=== PATIENT | male | born 1975 | race Caucasian/White ===

== ENCOUNTER 2017-02-17 13:22 | Inpatient (IN) | payer OTHER ==
[~2017-02-17] VITALS: Ht 177.8 cm; Wt 63.5 kg
[2017-02-17] MEDS ORDERED: IV NORMAL SALINE 1000ML BAG 1,000 ML IV SCH (13:42)
[2017-02-17] MEDS ORDERED: 0.9 % SODIUM CHLORIDE 10 ML DISP.SYRIN. IV PRN (13:45)
[2017-02-17] MEDS ORDERED: FAMOTIDINE 20 MG/2 ML VIAL IVP ONE (13:45)
[2017-02-17 13:59] LABS: BASO # 0.1 x10^3/uL (0.0-0.2); BASO % 1 % (0-3); EOS % 1 % (0-3); HEMATOCRIT 46.2 % (39.0-53.0); HEMOGLOBIN 15.9 g/dL (13.0-17.5); LYMPH % 30 % (24-48); MEAN CORPUSCULAR HEMOGLOBIN 31 pg (25-35); MEAN CORPUSCULAR HGB CONC 35 g/dL (31-37); MEAN CORPUSCULAR VOLUME 91 fL (79-100); MONO % 10 % (0-9); NEUT % 58 % (31-73); PLATELET COUNT 296 x10^3/uL (140-400); RED BLOOD COUNT 5.09 x10^6/uL (4.30-5.70); RED CELL DISTRIBUTION WIDTH 16.3 % (11.5-14.5); WHITE BLOOD COUNT 6.5 x10^3/uL (4.0-11.0)
--- NOTE | 2017-02-17 14:02 | PHYS DOC ---
Past Medical History Past Medical History: Anxiety Past Surgical History: Cholecystectomy Additional Past Surgical Histo: L elbow Alcohol Use: Occasionally Drug Use: None Adult General Chief Complaint Chief Complaint: RECTAL BLEED HPI HPI Patient is an otherwise healthy 41-year-old male with a history of cholelithiasis requiring cholecystectomy presents with abdominal pain that began 3 or 4 days ago describes epigastric burning. Patient noticed a burning sensation in his epigastrium with no radiation to his back as lower abdomen but he did note some bright red blood per rectum began 4 days prior to arrival. It initially was just on the outside of the stool and on his toilet paper. This is x-ray changed to dark tarry weakness at this point. He said he has not had much benefit last 24-48 hours secondary to the pain is increased with food. He does drink frequently sometimes anywhere from 6-8 beers if not more than 12 beers had an episode. He denies any fevers, chills, vomiting and has had some nausea with food. Denies any direct trauma, denies any chest pain, shortness of breath or other symptoms. Patient does work and admits that he's had no recent consumption of NSAIDs or other [id number] medications. Patient is them have these symptoms before. Patient denies any lightheaded or dizziness with the symptoms. Review of Systems Review of Systems Constitutional: Denies fever or chills [] Eyes: Denies change in visual acuity, redness, or eye pain [] HENT: Denies nasal congestion or sore throat [] Respiratory: Denies cough or shortness of breath [] Cardiovascular: No additional information not addressed in HPI [] GI: She complains of abdominal pain with nausea but no vomiting he has blood in his stools without constipation or diarrhea : Denies dysuria or hematuria [] Musculoskeletal: Denies back pain or joint pain [] Integument: Denies rash or skin lesions [] Neurologic: Denies headache, focal weakness or sensory changes [] Endocrine: Denies polyuria or polydipsia [] Current Medications Current Medications Current Medications Medications (Trade) Dose Ordered Sig/Tong Start Time Stop Time Status Last Admin Dose Admin Famotidine (Pepcid) 20 mg 1X ONCE 02/17/17 13:45 02/17/17 13:53 DC 02/17/17 13:59 20 MG Info (Do NOT chart on this entry -- for MONITORING) 1 each PRN DAILY PRN 02/17/17 14:30 02/19/17 14:29 Iohexol (Omnipaque 300 Mg/ml) 75 ml STK-MED ONCE 02/17/17 14:22 02/17/17 14:23 DC Sodium Chloride (Normal Saline Flush) 10 ml QSHIFT PRN 02/17/17 13:45 Allergies Allergies Allergies Coded Allergies Type Severity Reaction Last Updated Verified No Known Drug Allergies 07/05/14 No Physical Exam Physical Exam Other vital signs recorded on the chart patient noted to be hypertensive Constitutional: Well developed, well nourished, no acute distress, non-toxic appearance. Patient is somewhat pale. HENT: Normocephalic, atraumatic, bilateral external ears normal, oropharynx moist, no oral exudates, nose normal. [] Eyes: PERRLA, EOMI, conjunctiva normal, no discharge. [] Neck: Normal range of motion, no tenderness, supple, no stridor. [] Cardiovascular:Heart rate regular rhythm, no murmur [] Lungs & Thorax: Bilateral breath sounds clear to auscultation [] Abdomen: Bowel sounds normal, soft, no tenderness, no masses, no pulsatile masses. On rectal exam patient did not demonstrate any signs of obvious anal fissure, active bleeding, or marked hemorrhoids. Patient no tenderness on rectal exam. He was obviously not guaiac-positive and had no melanotic stool.[] Skin: Warm, dry, no erythema, no rash. [] Back: No tenderness, no CVA tenderness. [] Extremities: No tenderness, no cyanosis, no clubbing, ROM intact, no edema. [] Neurologic: Alert and oriented X 3, normal motor function, normal sensory function, no focal deficits noted. [] Psychologic: Affect normal, judgement normal, mood normal. [] Current Patient Data Vital Signs Vital Signs Date Time Temp Pulse Resp B/P (MAP) Pulse Ox O2 Delivery O2 Flow Rate FiO2 02/17/17 13:29 97.9 89 16 164/109 (127) 100 Room Air 97.9 Lab Values Laboratory Tests Test 02/17/17 13:35 02/17/17 14:00 02/17/17 14:40 White Blood Count 6.5 x10^3/uL (4.0-11.0) Red Blood Count 5.09 x10^6/uL (4.30-5.70) Hemoglobin 15.9 g/dL (13.0-17.5) Hematocrit 46.2 % (39.0-53.0) Mean Corpuscular Volume 91 fL (79-100) Mean Corpuscular Hemoglobin 31 pg (25-35) Mean Corpuscular Hemoglobin Concent 35 g/dL (31-37) Red Cell Distribution Width 16.3 % (11.5-14.5) H Platelet Count 296 x10^3/uL (140-400) Neutrophils (%) (Auto) 58 % (31-73) Lymphocytes (%) (Auto) 30 % (24-48) Monocytes (%) (Auto) 10 % (0-9) H Eosinophils (%) (Auto) 1 % (0-3) Basophils (%) (Auto) 1 % (0-3) Neutrophils # (Auto) 3.8 x10^3uL (1.8-7.7) Lymphocytes # (Auto) 2.0 x10^3/uL (1.0-4.8) Monocytes # (Auto) 0.7 x10^3/uL (0.0-1.1) Eosinophils # (Auto) 0.1 x10^3/uL (0.0-0.7) Basophils # (Auto) 0.1 x10^3/uL (0.0-0.2) Sodium Level 133 mmol/L (136-145) L Potassium Level 4.0 mmol/L (3.5-5.1) Chloride Level 99 mmol/L (98-107) Carbon Dioxide Level 25 mmol/L (21-32) Anion Gap 9 (6-14) Blood Urea Nitrogen 3 mg/dL (8-26) L Creatinine 0.9 mg/dL (0.7-1.3) Estimated GFR (Cockcroft-Gault) 93.0 Glucose Level 102 mg/dL (70-99) H Calcium Level 9.3 mg/dL (8.5-10.1) Magnesium Level 1.8 mg/dL (1.8-2.4) Total Bilirubin 0.6 mg/dL (0.2-1.0) Direct Bilirubin 0.1 mg/dL (0.0-0.2) Aspartate Amino Transferase (AST) 54 U/L (15-37) H Alanine Aminotransferase (ALT) 52 U/L (16-63) Alkaline Phosphatase 95 U/L (46-116) Troponin I Quantitative < 0.017 ng/mL (0.000-0.055) Total Protein 8.7 g/dL (6.4-8.2) H Albumin 3.8 g/dL (3.4-5.0) Lipase 231 U/L (73-393) Thyroid Stimulating Hormone (TSH) 0.622 uIU/mL (0.358-3.74) Stool Occult Blood Positive (NEG) Urine Collection Type Unknown Urine Color Colorless Urine Clarity Clear Urine pH 6.5 Urine Specific [place] <=1.005 Urine Protein Negative mg/dL (NEG-TRACE) Urine Glucose (UA) Negative mg/dL (NEG) Urine Ketones (Stick) Negative mg/dL (NEG) Urine Blood Negative (NEG) Urine Nitrite Negative (NEG) Urine Bilirubin Negative (NEG) Urine Urobilinogen Dipstick 0.2 mg/dL (0.2 mg/dL) Urine Leukocyte Esterase Negative (NEG) Urine RBC 0 /HPF (0-2) Urine WBC 0 /HPF (0-4) Urine Bacteria 0 /HPF (0-FEW) Laboratory Tests 02/17/17 13:35 Laboratory Tests 02/17/17 13:35 EKG EKG []Patient EKG timed at 1340 2 PM demonstrates a heart rate of 80 which is normal sinus rhythm read by me CO interval 168, QRS of 76 patient's QTc is 374 which is normal. Patient is T-wave (oh elevation is consistent with early repolarization. There is no T wave inversion and no reciprocal changes. Radiology/Procedures Radiology/Procedures [] [facility] [address] [place] [address] IMAGING REPORT Signed PATIENT: NORI VARGAS ACCOUNT: [id number] : 1975 LOCATION: ER AGE: 41 SEX: M EXAM STATUS: REG ER ORD. PHYSICIAN: GRACE BERRIOS MD REASON: epigastric ab pain PROCEDURE: CT ABD PELV W/ IV CONTRST ONLY Indication rectal bleeding for 3 days. Axial images of the abdomen and pelvis were obtained. No oral contrast was administered. Approximately 75 cc of Omnipaque 300 was administered intravenously. No prior imaging of the abdomen or pelvis is available. The lung bases are clear. The liver and spleen appear unremarkable. Clips are noted in the gallbladder fossa. The pancreas appears unremarkable. No adrenal masses are seen. There is a subcentimeter mass in the right kidney most compatible with a cyst. An acute or significant finding in the abdomen is not seen. In the pelvis no acute or significant finding is seen. The urinary bladder is mildly distended. IMPRESSION: No acute finding seen in the abdomen or pelvis. Mildly distended urinary bladder DICTATED and SIGNED BY: AMBER RAMON MD DATE: 02/17/17 2548 CC: GRACE BERRIOS MD; UNKNOWN PCP NAME ~ Course & Med Decision Making Course & Med Decision Making Pertinent Labs and Imaging studies reviewed. (See chart for details) On arrival patient is admitted alcohol user who complains of midepigastric abdominal pain with no gallbladder my concern initially upon arrival was peptic ulcer disease or perhaps alcoholic gastritis. Patient's rectal exam was really unremarkable with no evidence of rectal fissures, rectal hemorrhoids or rectal foreign body or abscess that be causing his symptoms. Patient is no evidence of internal hemorrhoids that is guaiac stool was positive.. He'll be given fluids anti-medics and pain medications as we wait for his blood work to return. Patient also a CT with IV contrast to see if there is any obvious signs of small bowel obstruction, perforation or other pending surgical catastrophes in his abdomen. Times now 2:40 PM patient is feeling somewhat better with fluids and medications. Low IV Protonix was not available due to shortages patient was given IV famotidine with marked improvement. Although there is no obvious blood in the stool from rectal exam patient was guaiac-positive. Patient's CBC came back with an agent that was normal at 15 and 44. Patient's platelet Was normal. Patient had an negative troponin, negative CMP, and a negative CT of the abdomen and pelvis. Shipyard Painter Helper note: Medicine Shipyard Painter Helper called at of the service 3:30 PM Consult called back at 4:45 PM Discussed the case I presented and they agreed with admission. Time of acceptance 4:45 PM Patient is in agreement with admission and is wanting to see a GI physician to help evaluate his source of GI bleed. [] Dragon Disclaimer Dragon Disclaimer This electronic medical record was generated, in whole or in part, using a voice recognition dictation system. Departure Departure Impression: Primary Impression: GI bleed Additional Impressions: Gastritis Abdominal pain Disposition: ADMITTED INPATIENT Admitting Physician: Other Condition: IMPROVED Referrals: NO PCP (PCP) Problem Qualifiers GRACE BERRIOS MD Feb 17, 2017 14:02
[2017-02-17 14:11] LABS: CALCIUM 9.3 mg/dL (8.5-10.1); CREATININE 0.9 mg/dL (0.7-1.3)
[2017-02-17 14:14] LABS: NEG OBC FOB NEG; POS OBC FOB POS
[2017-02-17 14:15] LABS: ALBUMIN 3.8 g/dL (3.4-5.0); DIRECT BILIRUBIN 0.1 mg/dL (0.0-0.2); MAGNESIUM 1.8 mg/dL (1.8-2.4); TOTAL BILIRUBIN 0.6 mg/dL (0.2-1.0); TOTAL PROTEIN 8.7 g/dL (6.4-8.2)
[2017-02-17] MEDS ORDERED: IOHEXOL 300 MG/ML 75 ML VIAL ONE (14:22)
[2017-02-17] MEDS ORDERED: IOHEXOL 300 MG/ML 75 ML VIAL IV ONE (14:30)
[2017-02-17] MEDS ORDERED: CONTRAST GIVEN MC PRN (14:30)
[2017-02-17 14:52] LABS: BILIRUBIN,URINE NEGATIVE (NEG); GLUCOSE,URINE NEGATIVE (NEG); NITRITE,URINE NEGATIVE (NEG); PH,URINE 6.5; PROTEIN,URINE NEGATIVE (NEG-TRACE); UROBILINOGEN,URINE 0.2 mg/dL (0.2 mg/dL)
[2017-02-17 15:06] LABS: BACTERIA,URINE 0 /HPF (0-FEW); RBC,URINE 0 /HPF (0-2); WBC,URINE 0 /HPF (0-4)
--- NOTE | 2017-02-17 15:16 | RAD ---
Indication rectal bleeding for 3 days. Axial images of the abdomen and pelvis were obtained. No oral contrast was administered. Approximately 75 cc of Omnipaque 300 was administered intravenously. No prior imaging of the abdomen or pelvis is available. The lung bases are clear. The liver and spleen appear unremarkable. Clips are noted in the gallbladder fossa. The pancreas appears unremarkable. No adrenal masses are seen. There is a subcentimeter mass in the right kidney most compatible with a cyst. An acute or significant finding in the abdomen is not seen. In the pelvis no acute or significant finding is seen. The urinary bladder is mildly distended. IMPRESSION: No acute finding seen in the abdomen or pelvis. Mildly distended urinary bladder
[2017-02-17] MEDS ORDERED: ONDANSETRON PF 4 MG/2 ML VIAL. IV PRN (15:45)
[2017-02-17] MEDS ORDERED: fentaNYL PF VIAL 100 MCG/2 ML VIAL IV PRN (15:45)
--- NOTE | 2017-02-17 15:53 | EKG ---
[facility] [address] [place] [address] Test Date: 2017-02-17 Test Time: 13:42:45 Pat Name: NORI VARGAS Department: Room: Gender: M Delivery Truck Driver Heavy: : 1975 Requested By: GRACE BERRIOS Order Number: [id number] Reading MD: Keyon Elizabeth Measurements Intervals [place] Rate: 80 P: 57 RI: 168 QRS: 6 QRSD: 76 T: 62 QT: 322 QTc: 374 Interpretive Statements SINUS RHYTHM Electronically Signed On 02-22-2017 10:24:12 CDT by Keyon Elizabeth
[2017-02-17] MEDS ORDERED: SERT25TA4 PO (17:35)
[2017-02-17] MEDS: IV NORMAL SALINE 1000ML BAG 1,000 ML IV SCH ×2 (17:42→20:48)
[2017-02-17 19:26] VITALS: BP 135/89
--- NOTE | 2017-02-17 19:54 | HP ---
ADMIT DATE: 02/17/2017 CHIEF COMPLAINT: Rectal bleeding. HISTORY OF PRESENT ILLNESS: The patient is a 41-year-old gentleman who presented to the Emergency Room with a 3-day history of bright red blood per rectum. He relates that, in a timeframe, he started having diarrhea. Had bleeding essentially right after ___ and with each bowel movement. Although he did have multiple bowel movements per day, he denies any abdominal pain. He does affirm having nausea, denies any vomiting; however, does have some heartburn off and on. He denies fevers, but does note chills over the past 3 days. P.o. intake has been rather limited. Has not had anything for 24 hours now. Denies any sick contacts at home or at work. Amount of bleeding is scant. He never has bleeding by itself without stool. Never had symptoms like this before. PAST MEDICAL HISTORY: Anxiety. PAST SURGICAL HISTORY: He is status post cholecystectomy. FAMILY HISTORY: No GI issues known. Positive for diabetes and heart disease. SOCIAL HISTORY: Lives with his and 2 teenage children. Smokes about 5 or 6 cigarettes a day. Drinks about 6 or 8 beers on weekends. Denies any heavy alcohol use, otherwise. ALLERGIES: No known drug allergies. HOME MEDICATIONS: Sertraline. REVIEW OF SYSTEMS: Positive as per HPI. The rest of organ system review is negative. PHYSICAL EXAMINATION: VITAL SIGNS: From today show a blood pressure of 139/95, heart rate of 89, respiratory rate at 18. He is afebrile. GENERAL: This is a 41-year-old gentleman, well nourished, alert and oriented, in no acute distress. HEENT: Shows no scleral icterus. NECK: Supple. LUNGS: Clear to auscultation bilaterally. HEART: Has regular rate and rhythm. ABDOMEN: Has positive bowel sounds, soft, without any tenderness to palpation in the entire abdomen. EXTREMITIES: Show no edema, no clubbing, no cyanosis. SKIN: Warm, soft and dry without any rash. LABORATORY DATA: CBC with a WBC of 6.5, hemoglobin 15.9, platelets of 296. Chemistries: BUN and creatinine of 3 and 0.9, sodium at 133, potassium 4.0. LFTs with minimally elevated AST at 54. Initial CK is negative. Troponin 0.6. UA with less than 0.105 specific gravity, which is unusual and occult stool is positive. IMAGING: CT of the abdomen and pelvis without acute findings in the abdomen and pelvis, say for mildly distended urinary bladder. ASSESSMENT AND PLAN: The patient is a 41-year-old gentleman presenting with painless rectal bleeding. Suspect this may be internal hemorrhoids, cannot rule out diverticulitis, although no pain is noted on physical exam and CT is negative. We will obtain GI consult. We will keep him n.p.o. for now. He has antiemetics available. PPI will be continued. CONSTANZA GOULD MD DR: UR/nts JOB#: [id number] / [id number] JOYCE
[2017-02-17] MEDS: SERTRALINE 25 MG TABLET. PO SCH (20:48)
[2017-02-17] MEDS: PANTOPRAZOLE 40 MG TABLET.DR. PO SCH (20:48)
[2017-02-17 22:56] VITALS: BP 119/89
[2017-02-18 02:56] VITALS: BP 120/84
--- NOTE | 2017-02-18 05:29 | ACF ---
Admission Forms Criteria GASTROINTESTINAL BLEEDING Clinical Indications for Inpatient Care (Place 'X' for any and all applicable criteria): Ongoing inpatient care may be indicated for gastrointestinal bleeding with ANY ONE of the following (4)(20)(21)(22)(23)(24): [X]I. Active bleeding (eg, fresh voluminous blood in emesis or nasogastric aspirate, or per rectum) [ ]II. Hemodynamic instability [ ]III. Anticoagulation therapy or coagulopathy ((eg, advanced liver disease, irreversible anticoagulation) [ ]IV. Ischemic colitis (22) [ ]V. Endoscopy showing arterial bleeding, adherent clot, nonbleeding visible vessel, varices, flat red spots, ulcer size greater than 2 cm, or portal hypertensive gastropathy [ ]. High-risk low platelet count [ ]VII. Anemia requiring inpatient care as indicated by ANY ONE of the following a)[ ] Cognitive impairment b)[ ] Syncope c)[ ] Heart failure d)[ ] Chest pain e)[ ] Dyspnea f)[ ] Other findings suggesting inadequate perfusion (eg, peripheral or myocardial ischemia, end organ dysfunction) [ ]VIII. High-risk low platelet count [ ]IX. Suspected variceal cause of bleeding as indicated by ANY ONE of the following(27)(28): a)[ ] Known varices b)[ ] Hepatomegaly or splenomegaly c)[ ] Ascites d)[ ] Jaundice or scleral icterus e)[ ] History of liver disease (eg, cirrhosis) f)[ ] Physical findings of portal hypertension (eg, caput medusa) g)[ ] Comorbid disorder indicating risk for portal vein thrombosis (eg , abdominal surgery, sepsis, shock, exchange transfusion, prior umbilical vein catheterization) Extended stay may be needed until ALL of the following are present(20)(38)(47): [ ]a) Hemodynamic stability [ ]b) No evidence of active bleeding (eg, stable Hematocrit) [ ]c) Platelet count, prothrombin time, and partial thromboplastin time acceptable for next level of care [ ]d) Surgical or other acute intervention not needed [ ]e) Oral hydration and diet tolerated The original [employer] content created by [employer] has been revised. The portions of the content which have been revised are identified through the use of italic text or in bold, and [employer] has neither reviewed nor approved the modified material. All other unmodified content is copyright [facility]. Please see references footnoted in the original [facility] edition 2016 Admission Criteria Met?: Yes PAIGE ALRA Feb 18, 2017 05:29
[2017-02-18 07:00] VITALS: BP 121/84
[2017-02-18] MEDS: PANTOPRAZOLE 40 MG TABLET.DR. PO SCH ×2 (08:40→17:31)
[2017-02-18] MEDS: IV NORMAL SALINE 1000ML BAG 1,000 ML IV SCH (08:41)
[2017-02-18 08:46] LABS: BASO % 1 % (0-3); EOS % 1 % (0-3); HEMATOCRIT 40.6 % (39.0-53.0); HEMOGLOBIN 14.4 g/dL (13.0-17.5); LYMPH # 1.1 x10^3/uL (1.0-4.8); LYMPH % 21 % (24-48); MEAN CORPUSCULAR HEMOGLOBIN 32 pg (25-35); MEAN CORPUSCULAR HGB CONC 36 g/dL (31-37); MEAN CORPUSCULAR VOLUME 90 fL (79-100); MONO % 9 % (0-9); NEUT % 68 % (31-73); PLATELET COUNT 207 x10^3/uL (140-400); RED BLOOD COUNT 4.52 x10^6/uL (4.30-5.70); RED CELL DISTRIBUTION WIDTH 16.3 % (11.5-14.5); WHITE BLOOD COUNT 5.2 x10^3/uL (4.0-11.0)
[2017-02-18 09:02] LABS: % SAT IRON 67 % (15-34); IRON,SERUM 161 ug/dL (65-175)
--- NOTE | 2017-02-18 09:50 | PDOC2 ---
GI CONSULT Reason For Consult: New GI Bleed HPI: HPI: 41 y/o male admitted through the ER. Reports diarrhea x 3 days, estimates 6-7 brown-yellow watery stools w/ "stripes" of red blood + blood on toilet tissue ( has occurred once since admission). Denies precipitating events including consumption of questionable food, new medication use, or sick contacts; did travel to [place] ~6 weeks ago. Also had some significant lower back pain ~3 weeks ago that he thought might have been a kidney infection; this resolved. Has not had issues w/ bleeding previously; however, had a colonoscopy @ [facility] for "digestive problems" a few years ago, doesn't recall results. Had some epigastric pain yesterday which has resolved. Some nausea w/o vomiting. No weight loss or change in appetite. Has had chills. No reflux/heartburn. Occasional NSAID use for HAs. No previous EGD. S/p cholecystectomy "for seeds. " No liver or pancreas history. Drinks 1-2 beers sometimes on the weekdays plus 6-8 beers on the weekends. Labs: Hgb 15.9 (now 14.4), BUN 3, Na 133, LFTs WNL except AST 55, fecal occult blood +. CT A/P unrevealing. Kept NPO w/ ice chips, on PPI. Just received Fentanyl for MARQUES, feels dizzy now. PMH: PMH: cholecystectomy FH: Family History: No pertinent hx (denies GI cancers, IBD, liver/pancreas disease ) Social History: Smoke: <1 pack per day ALCOHOL: other (sometimes 1-2 beers on weeknights, 6-8 beers on weekends) Drugs: None ROS: GEN: +chills HEENT: Denies blurred vision, sore throat CV: Denies chest pain RESP: Denies shortness of air, cough GI: Per HPI : Denies hematuria, dysuria ENDO: Denies weight changes NEURO: +MARQUES/dizzy MSK: +back pain - resolved SKIN: Denies jaundice, pruritus Vitals: Vitals: Vital Signs Date Time Temp Pulse Resp B/P (MAP) Pulse Ox O2 Delivery O2 Flow Rate FiO2 02/18/17 08:41 Room Air 02/18/17 07:00 98.2 74 20 121/84 (96) 98 98.2 Labs: Labs: Laboratory Tests Test 02/17/17 13:35 02/17/17 14:00 02/17/17 14:40 02/17/17 19:30 White Blood Count 6.5 x10^3/uL (4.0-11.0) Red Blood Count 5.09 x10^6/uL (4.30-5.70) Hemoglobin 15.9 g/dL (13.0-17.5) Hematocrit 46.2 % (39.0-53.0) Mean Corpuscular Volume 91 fL (79-100) Mean Corpuscular Hemoglobin 31 pg (25-35) Mean Corpuscular Hemoglobin Concent 35 g/dL (31-37) Red Cell Distribution Width 16.3 % (11.5-14.5) Platelet Count 296 x10^3/uL (140-400) Neutrophils (%) (Auto) 58 % (31-73) Lymphocytes (%) (Auto) 30 % (24-48) Monocytes (%) (Auto) 10 % (0-9) Eosinophils (%) (Auto) 1 % (0-3) Basophils (%) (Auto) 1 % (0-3) Neutrophils # (Auto) 3.8 x10^3uL (1.8-7.7) Lymphocytes # (Auto) 2.0 x10^3/uL (1.0-4.8) Monocytes # (Auto) 0.7 x10^3/uL (0.0-1.1) Eosinophils # (Auto) 0.1 x10^3/uL (0.0-0.7) Basophils # (Auto) 0.1 x10^3/uL (0.0-0.2) Sodium Level 133 mmol/L (136-145) Potassium Level 4.0 mmol/L (3.5-5.1) Chloride Level 99 mmol/L (98-107) Carbon Dioxide Level 25 mmol/L (21-32) Anion Gap 9 (6-14) Blood Urea Nitrogen 3 mg/dL (8-26) Creatinine 0.9 mg/dL (0.7-1.3) Estimated GFR (Cockcroft-Gault) 93.0 Glucose Level 102 mg/dL (70-99) Calcium Level 9.3 mg/dL (8.5-10.1) Magnesium Level 1.8 mg/dL (1.8-2.4) Total Bilirubin 0.6 mg/dL (0.2-1.0) Direct Bilirubin 0.1 mg/dL (0.0-0.2) Aspartate Amino Transf (AST/SGOT) 54 U/L (15-37) Alanine Aminotransferase (ALT/SGPT) 52 U/L (16-63) Alkaline Phosphatase 95 U/L (46-116) Troponin I Quantitative < 0.017 ng/mL (0.000-0.055) < 0.017 ng/mL (0.000-0.055) Total Protein 8.7 g/dL (6.4-8.2) Albumin 3.8 g/dL (3.4-5.0) Lipase 231 U/L (73-393) Thyroid Stimulating Hormone (TSH) 0.622 uIU/mL (0.358-3.74) Stool Occult Blood Positive (NEG) Urine Collection Type Unknown Urine Color Colorless Urine Clarity Clear Urine pH 6.5 Urine Specific [place] <=1.005 Urine Protein Negative mg/dL (NEG-TRACE) Urine Glucose (UA) Negative mg/dL (NEG) Urine Ketones (Stick) Negative mg/dL (NEG) Urine Blood Negative (NEG) Urine Nitrite Negative (NEG) Urine Bilirubin Negative (NEG) Urine Urobilinogen Dipstick 0.2 mg/dL (0.2 mg/dL) Urine Leukocyte Esterase Negative (NEG) Urine RBC 0 /HPF (0-2) Urine WBC 0 /HPF (0-4) Urine Bacteria 0 /HPF (0-FEW) Test 02/18/17 08:31 White Blood Count 5.2 x10^3/uL (4.0-11.0) Red Blood Count 4.52 x10^6/uL (4.30-5.70) Hemoglobin 14.4 g/dL (13.0-17.5) Hematocrit 40.6 % (39.0-53.0) Mean Corpuscular Volume 90 fL (79-100) Mean Corpuscular Hemoglobin 32 pg (25-35) Mean Corpuscular Hemoglobin Concent 36 g/dL (31-37) Red Cell Distribution Width 16.3 % (11.5-14.5) Platelet Count 207 x10^3/uL (140-400) Neutrophils (%) (Auto) 68 % (31-73) Lymphocytes (%) (Auto) 21 % (24-48) Monocytes (%) (Auto) 9 % (0-9) Eosinophils (%) (Auto) 1 % (0-3) Basophils (%) (Auto) 1 % (0-3) Neutrophils # (Auto) 3.5 x10^3uL (1.8-7.7) Lymphocytes # (Auto) 1.1 x10^3/uL (1.0-4.8) Monocytes # (Auto) 0.5 x10^3/uL (0.0-1.1) Eosinophils # (Auto) 0.1 x10^3/uL (0.0-0.7) Basophils # (Auto) 0.0 x10^3/uL (0.0-0.2) Allergies: Coded Allergies: No Known Drug Allergies (Unverified , 07/05/14) Medications: Current Medications Medications (Trade) Dose Ordered Sig/Tong Route PRN Reason Start Time Stop Time Status Last Admin Dose Admin Sodium Chloride 1,000 ml @ 1,000 mls/hr Q1H IV 02/17/17 13:42 02/17/17 14:41 DC 02/17/17 14:00 Famotidine (Pepcid) 20 mg 1X ONCE IVP 02/17/17 13:45 02/17/17 13:53 DC 02/17/17 13:59 Iohexol (Omnipaque 300 Mg/ml) 75 ml 1X ONCE IV 02/17/17 14:30 02/17/17 14:31 DC 02/17/17 14:59 Ondansetron HCl (Zofran) 4 mg PRN Q8HRS PRN IV NAUSEA/VOMITING 02/17/17 15:45 02/18/17 15:44 02/17/17 17:42 Fentanyl Citrate (Fentanyl 2ml Vial) 50 mcg PRN Q1HR PRN IV PAIN 02/17/17 15:45 02/18/17 15:44 02/18/17 08:41 Sodium Chloride 1,000 ml @ 125 mls/hr Q8H IV 02/17/17 15:41 02/18/17 15:40 02/18/17 08:41 Pantoprazole Sodium (Protonix) 40 mg BIDAC PO 02/17/17 18:00 02/18/17 08:40 Sertraline HCl (Zoloft) 25 mg QHS PO 02/17/17 21:00 02/17/17 20:48 Imaging: Imaging: CT A/P 02/17/17 w/ IV contrast The lung bases are clear. The liver and spleen appear unremarkable. Clips are noted in the gallbladder fossa. The pancreas appears unremarkable. No adrenal masses are seen. There is a subcentimeter mass in the right kidney most compatible with a cyst. An acute or significant finding in the abdomen is not seen. In the pelvis no acute or significant finding is seen. The urinary bladder is mildly distended. IMPRESSION: No acute finding seen in the abdomen or pelvis. Mildly distended urinary bladder. PE: GEN: NAD HEENT: Atraumatic, PERRL LUNGS: CTAB HEART: RRR ABD: NABS, S/ND/NT EXTREMITY: No edema SKIN: No rashes, no jaundice NEURO/PSYCH: A & O 3 A/P: A/P: Diarrhea, rectal bleeding -onset 3 days ago, 6-7 watery stools daily w/ streaks of red blood -Hgb and BUN WNL, fecal occult positive -travel to [place] 6 weeks ago, has had chills Nausea Abd pain - resolved Alcohol use -Na 133, AST 55, liver unremarkable on CT Headache CRC screen -previous colon[facility] @ [facility], unsure about results -- Check tox screen, iron profile, Cortisol levels, and fecal WBCs. SCOTT CASILLAS Feb 18, 2017 09:50
[2017-02-18 11:00] VITALS: BP 124/88
--- NOTE | 2017-02-18 12:19 | PDOC ---
PROGRESS NOTES Chief Complaint Chief Complaint GI bleed Epigastric abd pain History of Present Illness History of Present Illness Pt was laying in bed and feels ok but was very hungry. Discussed with GI and we were keeping him NPO until GI had a chance to do their exam. Relayed this to pt and he understands Vitals Vitals Vital Signs Date Time Temp Pulse Resp B/P (MAP) Pulse Ox O2 Delivery O2 Flow Rate FiO2 02/18/17 11:00 98.2 80 20 124/88 (100) 99 Room Air 98.2 Physical Exam General: Alert, Oriented X3, Cooperative, No acute distress Heart: Regular rate, No murmurs Lungs: Clear, Other (no wheezing, no crackles) Abdomen: Soft, No tenderness, Other Extremities: No clubbing, No cyanosis Skin: No rashes, No significant lesion Labs LABS Laboratory Tests Test 02/17/17 13:35 02/17/17 14:00 02/17/17 14:40 02/17/17 19:30 White Blood Count 6.5 x10^3/uL (4.0-11.0) Red Blood Count 5.09 x10^6/uL (4.30-5.70) Hemoglobin 15.9 g/dL (13.0-17.5) Hematocrit 46.2 % (39.0-53.0) Mean Corpuscular Volume 91 fL (79-100) Mean Corpuscular Hemoglobin 31 pg (25-35) Mean Corpuscular Hemoglobin Concent 35 g/dL (31-37) Red Cell Distribution Width 16.3 % (11.5-14.5) Platelet Count 296 x10^3/uL (140-400) Neutrophils (%) (Auto) 58 % (31-73) Lymphocytes (%) (Auto) 30 % (24-48) Monocytes (%) (Auto) 10 % (0-9) Eosinophils (%) (Auto) 1 % (0-3) Basophils (%) (Auto) 1 % (0-3) Neutrophils # (Auto) 3.8 x10^3uL (1.8-7.7) Lymphocytes # (Auto) 2.0 x10^3/uL (1.0-4.8) Monocytes # (Auto) 0.7 x10^3/uL (0.0-1.1) Eosinophils # (Auto) 0.1 x10^3/uL (0.0-0.7) Basophils # (Auto) 0.1 x10^3/uL (0.0-0.2) Sodium Level 133 mmol/L (136-145) Potassium Level 4.0 mmol/L (3.5-5.1) Chloride Level 99 mmol/L (98-107) Carbon Dioxide Level 25 mmol/L (21-32) Anion Gap 9 (6-14) Blood Urea Nitrogen 3 mg/dL (8-26) Creatinine 0.9 mg/dL (0.7-1.3) Estimated GFR (Cockcroft-Gault) 93.0 Glucose Level 102 mg/dL (70-99) Calcium Level 9.3 mg/dL (8.5-10.1) Magnesium Level 1.8 mg/dL (1.8-2.4) Total Bilirubin 0.6 mg/dL (0.2-1.0) Direct Bilirubin 0.1 mg/dL (0.0-0.2) Aspartate Amino Transf (AST/SGOT) 54 U/L (15-37) Alanine Aminotransferase (ALT/SGPT) 52 U/L (16-63) Alkaline Phosphatase 95 U/L (46-116) Troponin I Quantitative < 0.017 ng/mL (0.000-0.055) < 0.017 ng/mL (0.000-0.055) Total Protein 8.7 g/dL (6.4-8.2) Albumin 3.8 g/dL (3.4-5.0) Lipase 231 U/L (73-393) Thyroid Stimulating Hormone (TSH) 0.622 uIU/mL (0.358-3.74) Stool Occult Blood Positive (NEG) Urine Collection Type Unknown Urine Color Colorless Urine Clarity Clear Urine pH 6.5 Urine Specific [place] <=1.005 Urine Protein Negative mg/dL (NEG-TRACE) Urine Glucose (UA) Negative mg/dL (NEG) Urine Ketones (Stick) Negative mg/dL (NEG) Urine Blood Negative (NEG) Urine Nitrite Negative (NEG) Urine Bilirubin Negative (NEG) Urine Urobilinogen Dipstick 0.2 mg/dL (0.2 mg/dL) Urine Leukocyte Esterase Negative (NEG) Urine RBC 0 /HPF (0-2) Urine WBC 0 /HPF (0-4) Urine Bacteria 0 /HPF (0-FEW) Test 02/18/17 08:31 White Blood Count 5.2 x10^3/uL (4.0-11.0) Red Blood Count 4.52 x10^6/uL (4.30-5.70) Hemoglobin 14.4 g/dL (13.0-17.5) Hematocrit 40.6 % (39.0-53.0) Mean Corpuscular Volume 90 fL (79-100) Mean Corpuscular Hemoglobin 32 pg (25-35) Mean Corpuscular Hemoglobin Concent 36 g/dL (31-37) Red Cell Distribution Width 16.3 % (11.5-14.5) Platelet Count 207 x10^3/uL (140-400) Neutrophils (%) (Auto) 68 % (31-73) Lymphocytes (%) (Auto) 21 % (24-48) Monocytes (%) (Auto) 9 % (0-9) Eosinophils (%) (Auto) 1 % (0-3) Basophils (%) (Auto) 1 % (0-3) Neutrophils # (Auto) 3.5 x10^3uL (1.8-7.7) Lymphocytes # (Auto) 1.1 x10^3/uL (1.0-4.8) Monocytes # (Auto) 0.5 x10^3/uL (0.0-1.1) Eosinophils # (Auto) 0.1 x10^3/uL (0.0-0.7) Basophils # (Auto) 0.0 x10^3/uL (0.0-0.2) Iron Level 161 ug/dL (65-175) Total Iron Binding Capacity 241 ug/dL (250-450) Iron Saturation 67 % (15-34) Review of Systems Review of Systems c/o hunger c/o fatigue Assessment and Plan Assessmemt and Plan GI bleed: monitor labs Epigastric abd pain: pain meds prn GI is on case. Will follow. D/c when ok w/ GI Problems: Comment Review of Relevant I have reviewed the following items argelia (where applicable) has been applied. Labs Laboratory Tests Test 02/17/17 13:35 02/17/17 14:00 02/17/17 14:40 02/17/17 19:30 White Blood Count 6.5 x10^3/uL (4.0-11.0) Red Blood Count 5.09 x10^6/uL (4.30-5.70) Hemoglobin 15.9 g/dL (13.0-17.5) Hematocrit 46.2 % (39.0-53.0) Mean Corpuscular Volume 91 fL (79-100) Mean Corpuscular Hemoglobin 31 pg (25-35) Mean Corpuscular Hemoglobin Concent 35 g/dL (31-37) Red Cell Distribution Width 16.3 % (11.5-14.5) Platelet Count 296 x10^3/uL (140-400) Neutrophils (%) (Auto) 58 % (31-73) Lymphocytes (%) (Auto) 30 % (24-48) Monocytes (%) (Auto) 10 % (0-9) Eosinophils (%) (Auto) 1 % (0-3) Basophils (%) (Auto) 1 % (0-3) Neutrophils # (Auto) 3.8 x10^3uL (1.8-7.7) Lymphocytes # (Auto) 2.0 x10^3/uL (1.0-4.8) Monocytes # (Auto) 0.7 x10^3/uL (0.0-1.1) Eosinophils # (Auto) 0.1 x10^3/uL (0.0-0.7) Basophils # (Auto) 0.1 x10^3/uL (0.0-0.2) Sodium Level 133 mmol/L (136-145) Potassium Level 4.0 mmol/L (3.5-5.1) Chloride Level 99 mmol/L (98-107) Carbon Dioxide Level 25 mmol/L (21-32) Anion Gap 9 (6-14) Blood Urea Nitrogen 3 mg/dL (8-26) Creatinine 0.9 mg/dL (0.7-1.3) Estimated GFR (Cockcroft-Gault) 93.0 Glucose Level 102 mg/dL (70-99) Calcium Level 9.3 mg/dL (8.5-10.1) Magnesium Level 1.8 mg/dL (1.8-2.4) Total Bilirubin 0.6 mg/dL (0.2-1.0) Direct Bilirubin 0.1 mg/dL (0.0-0.2) Aspartate Amino Transf (AST/SGOT) 54 U/L (15-37) Alanine Aminotransferase (ALT/SGPT) 52 U/L (16-63) Alkaline Phosphatase 95 U/L (46-116) Troponin I Quantitative < 0.017 ng/mL (0.000-0.055) < 0.017 ng/mL (0.000-0.055) Total Protein 8.7 g/dL (6.4-8.2) Albumin 3.8 g/dL (3.4-5.0) Lipase 231 U/L (73-393) Thyroid Stimulating Hormone (TSH) 0.622 uIU/mL (0.358-3.74) Stool Occult Blood Positive (NEG) Urine Collection Type Unknown Urine Color Colorless Urine Clarity Clear Urine pH 6.5 Urine Specific [place] <=1.005 Urine Protein Negative mg/dL (NEG-TRACE) Urine Glucose (UA) Negative mg/dL (NEG) Urine Ketones (Stick) Negative mg/dL (NEG) Urine Blood Negative (NEG) Urine Nitrite Negative (NEG) Urine Bilirubin Negative (NEG) Urine Urobilinogen Dipstick 0.2 mg/dL (0.2 mg/dL) Urine Leukocyte Esterase Negative (NEG) Urine RBC 0 /HPF (0-2) Urine WBC 0 /HPF (0-4) Urine Bacteria 0 /HPF (0-FEW) Test 02/18/17 08:31 White Blood Count 5.2 x10^3/uL (4.0-11.0) Red Blood Count 4.52 x10^6/uL (4.30-5.70) Hemoglobin 14.4 g/dL (13.0-17.5) Hematocrit 40.6 % (39.0-53.0) Mean Corpuscular Volume 90 fL (79-100) Mean Corpuscular Hemoglobin 32 pg (25-35) Mean Corpuscular Hemoglobin Concent 36 g/dL (31-37) Red Cell Distribution Width 16.3 % (11.5-14.5) Platelet Count 207 x10^3/uL (140-400) Neutrophils (%) (Auto) 68 % (31-73) Lymphocytes (%) (Auto) 21 % (24-48) Monocytes (%) (Auto) 9 % (0-9) Eosinophils (%) (Auto) 1 % (0-3) Basophils (%) (Auto) 1 % (0-3) Neutrophils # (Auto) 3.5 x10^3uL (1.8-7.7) Lymphocytes # (Auto) 1.1 x10^3/uL (1.0-4.8) Monocytes # (Auto) 0.5 x10^3/uL (0.0-1.1) Eosinophils # (Auto) 0.1 x10^3/uL (0.0-0.7) Basophils # (Auto) 0.0 x10^3/uL (0.0-0.2) Iron Level 161 ug/dL (65-175) Total Iron Binding Capacity 241 ug/dL (250-450) Iron Saturation 67 % (15-34) Laboratory Tests Test 02/17/17 13:35 02/17/17 14:00 02/17/17 14:40 02/17/17 19:30 White Blood Count 6.5 x10^3/uL (4.0-11.0) Red Blood Count 5.09 x10^6/uL (4.30-5.70) Hemoglobin 15.9 g/dL (13.0-17.5) Hematocrit 46.2 % (39.0-53.0) Mean Corpuscular Volume 91 fL (79-100) Mean Corpuscular Hemoglobin 31 pg (25-35) Mean Corpuscular Hemoglobin Concent 35 g/dL (31-37) Red Cell Distribution Width 16.3 % (11.5-14.5) Platelet Count 296 x10^3/uL (140-400) Neutrophils (%) (Auto) 58 % (31-73) Lymphocytes (%) (Auto) 30 % (24-48) Monocytes (%) (Auto) 10 % (0-9) Eosinophils (%) (Auto) 1 % (0-3) Basophils (%) (Auto) 1 % (0-3) Neutrophils # (Auto) 3.8 x10^3uL (1.8-7.7) Lymphocytes # (Auto) 2.0 x10^3/uL (1.0-4.8) Monocytes # (Auto) 0.7 x10^3/uL (0.0-1.1) Eosinophils # (Auto) 0.1 x10^3/uL (0.0-0.7) Basophils # (Auto) 0.1 x10^3/uL (0.0-0.2) Sodium Level 133 mmol/L (136-145) Potassium Level 4.0 mmol/L (3.5-5.1) Chloride Level 99 mmol/L (98-107) Carbon Dioxide Level 25 mmol/L (21-32) Anion Gap 9 (6-14) Blood Urea Nitrogen 3 mg/dL (8-26) Creatinine 0.9 mg/dL (0.7-1.3) Estimated GFR (Cockcroft-Gault) 93.0 Glucose Level 102 mg/dL (70-99) Calcium Level 9.3 mg/dL (8.5-10.1) Magnesium Level 1.8 mg/dL (1.8-2.4) Total Bilirubin 0.6 mg/dL (0.2-1.0) Direct Bilirubin 0.1 mg/dL (0.0-0.2) Aspartate Amino Transf (AST/SGOT) 54 U/L (15-37) Alanine Aminotransferase (ALT/SGPT) 52 U/L (16-63) Alkaline Phosphatase 95 U/L (46-116) Troponin I Quantitative < 0.017 ng/mL (0.000-0.055) < 0.017 ng/mL (0.000-0.055) Total Protein 8.7 g/dL (6.4-8.2) Albumin 3.8 g/dL (3.4-5.0) Lipase 231 U/L (73-393) Thyroid Stimulating Hormone (TSH) 0.622 uIU/mL (0.358-3.74) Stool Occult Blood Positive (NEG) Urine Collection Type Unknown Urine Color Colorless Urine Clarity Clear Urine pH 6.5 Urine Specific [place] <=1.005 Urine Protein Negative mg/dL (NEG-TRACE) Urine Glucose (UA) Negative mg/dL (NEG) Urine Ketones (Stick) Negative mg/dL (NEG) Urine Blood Negative (NEG) Urine Nitrite Negative (NEG) Urine Bilirubin Negative (NEG) Urine Urobilinogen Dipstick 0.2 mg/dL (0.2 mg/dL) Urine Leukocyte Esterase Negative (NEG) Urine RBC 0 /HPF (0-2) Urine WBC 0 /HPF (0-4) Urine Bacteria 0 /HPF (0-FEW) Test 02/18/17 08:31 White Blood Count 5.2 x10^3/uL (4.0-11.0) Red Blood Count 4.52 x10^6/uL (4.30-5.70) Hemoglobin 14.4 g/dL (13.0-17.5) Hematocrit 40.6 % (39.0-53.0) Mean Corpuscular Volume 90 fL (79-100) Mean Corpuscular Hemoglobin 32 pg (25-35) Mean Corpuscular Hemoglobin Concent 36 g/dL (31-37) Red Cell Distribution Width 16.3 % (11.5-14.5) Platelet Count 207 x10^3/uL (140-400) Neutrophils (%) (Auto) 68 % (31-73) Lymphocytes (%) (Auto) 21 % (24-48) Monocytes (%) (Auto) 9 % (0-9) Eosinophils (%) (Auto) 1 % (0-3) Basophils (%) (Auto) 1 % (0-3) Neutrophils # (Auto) 3.5 x10^3uL (1.8-7.7) Lymphocytes # (Auto) 1.1 x10^3/uL (1.0-4.8) Monocytes # (Auto) 0.5 x10^3/uL (0.0-1.1) Eosinophils # (Auto) 0.1 x10^3/uL (0.0-0.7) Basophils # (Auto) 0.0 x10^3/uL (0.0-0.2) Iron Level 161 ug/dL (65-175) Total Iron Binding Capacity 241 ug/dL (250-450) Iron Saturation 67 % (15-34) Medications Current Medications Sodium Chloride 1,000 ml @ 1,000 mls/hr Q1H IV Last administered on 02/17/17 14:00; Start 02/17/17 at 13:42; Stop 02/17/17 at 14:41; Status DC Sodium Chloride (Normal Saline Flush) 10 ml QSHIFT PRN IV AFTER MEDS AND BLOOD DRAWS; Start 02/17/17 at 13:45 Famotidine (Pepcid) 20 mg 1X ONCE IVP Last administered on 02/17/17 13:59; Start 02/17/17 at 13:45; Stop 02/17/17 at 13:53; Status DC Iohexol (Omnipaque 300 Mg/ml) 75 ml 1X ONCE IV Last administered on 02/17/17 14:59; Start 02/17/17 at 14:30; Stop 02/17/17 at 14:31; Status DC Info (Do NOT chart on this entry -- for MONITORING) 1 each PRN DAILY PRN MC SEE COMMENTS; Start 02/17/17 at 14:30; Stop 02/19/17 at 14:29 Iohexol (Omnipaque 300 Mg/ml) 75 ml STK-MED ONCE .ROUTE ; Start 02/17/17 at 14: 22; Stop 02/17/17 at 14:23; Status DC Ondansetron HCl (Zofran) 4 mg PRN Q8HRS PRN IV NAUSEA/VOMITING Last administered on 02/17/17 17:42; Start 02/17/17 at 15:45; Stop 02/18/17 at 15:44 Fentanyl Citrate (Fentanyl 2ml Vial) 50 mcg PRN Q1HR PRN IV PAIN Last administered on 02/18/17 08:41; Start 02/17/17 at 15:45; Stop 02/18/17 at 15:44 Sodium Chloride 1,000 ml @ 125 mls/hr Q8H IV Last administered on 02/18/17 08 :41; Start 02/17/17 at 15:41; Stop 02/18/17 at 15:40 Pantoprazole Sodium (Protonix) 40 mg BIDAC PO Last administered on 02/18/17 08 :40; Start 02/17/17 at 18:00 Sertraline HCl (Zoloft) 25 mg QHS PO Last administered on 02/17/17 20:48; Start 02/17/17 at 21:00 Active Scripts Active Reported Sertraline Hcl 25 Mg Tablet 25 Mg PO DAILY Vitals/I & O Vital Sign - Last 24 Hours 02/17/17 02/17/17 02/17/17 02/17/17 13:29 16:34 18:31 19:26 Temp 97.9 98.2 97.9 98.2 Pulse 89 84 81 Resp 16 18 B/P (MAP) 164/109 (127) 146/84 (104) 135/89 (104) Pulse Ox 100 98 98 O2 Delivery Room Air Room Air Room Air Room Air 02/17/17 02/17/17 02/18/17 02/18/17 19:54 22:56 02:56 07:00 Temp 98.7 98.3 98.2 98.7 98.3 98.2 Pulse 83 76 74 Resp 16 16 20 B/P (MAP) 119/89 (99) 120/84 (96) 121/84 (96) Pulse Ox 97 98 98 O2 Delivery Room Air Room Air Room Air Room Air 02/18/17 02/18/17 02/18/17 08:00 08:41 11:00 Temp 98.2 98.2 Pulse 80 Resp 20 B/P (MAP) 124/88 (100) Pulse Ox 99 O2 Delivery Room Air Room Air Room Air TIFF ROCHA III DO Feb 18, 2017 12:19
[2017-02-18 15:00] VITALS: BP 122/88
[2017-02-18 18:24] LABS: BARBITURATES NEG (NEG); BENZODIAZEPINES NEG (NEG); CANNABINOIDS NEG (NEG); COCAINE POS (NEG); METHADONE NEG (NEG); OPIATES NEG (NEG); PHENCYCLIDINE NEG (NEG)
[2017-02-18 19:00] VITALS: BP 121/88
[2017-02-18] MEDS: SERTRALINE 25 MG TABLET. PO SCH (20:42)
[2017-02-18 23:00] VITALS: BP 108/80
[2017-02-19 03:09] VITALS: BP 107/79
[2017-02-19 07:00] VITALS: BP 114/87
[2017-02-19] MEDS: PANTOPRAZOLE 40 MG TABLET.DR. PO SCH (07:50)
[2017-02-19 08:16] LABS: BASO % 1 % (0-3); EOS % 1 % (0-3); HEMATOCRIT 42.3 % (39.0-53.0); HEMOGLOBIN 14.4 g/dL (13.0-17.5); LYMPH # 1.3 x10^3/uL (1.0-4.8); LYMPH % 22 % (24-48); MEAN CORPUSCULAR HEMOGLOBIN 31 pg (25-35); MEAN CORPUSCULAR HGB CONC 34 g/dL (31-37); MEAN CORPUSCULAR VOLUME 91 fL (79-100); MONO % 12 % (0-9); NEUT % 65 % (31-73); PLATELET COUNT 209 x10^3/uL (140-400); RED BLOOD COUNT 4.63 x10^6/uL (4.30-5.70); RED CELL DISTRIBUTION WIDTH 16.2 % (11.5-14.5); WHITE BLOOD COUNT 5.7 x10^3/uL (4.0-11.0)
[2017-02-19] MEDS ORDERED: HYDROcodone/APAP 5/325MG 1 TAB TABLET PO PRN (08:30)
[2017-02-19 08:35] LABS: CALCIUM 8.5 mg/dL (8.5-10.1); CREATININE 0.9 mg/dL (0.7-1.3); POTASSIUM 3.9 mmol/L (3.5-5.1)
[2017-02-19 11:00] VITALS: BP 111/79
--- NOTE | 2017-02-19 11:49 | PDOC ---
PROGRESS NOTES Chief Complaint Chief Complaint GI bleed Epigastric abd pain History of Present Illness History of Present Illness Pt laying in bed and notes that diarrhea has been improving Vitals Vitals Vital Signs Date Time Temp Pulse Resp B/P (MAP) Pulse Ox O2 Delivery O2 Flow Rate FiO2 02/19/17 08:43 Room Air 02/19/17 07:00 97.7 76 20 114/87 (96) 96 97.7 Physical Exam General: Alert, Oriented X3, Cooperative, No acute distress Heart: Regular rate, No murmurs Lungs: Clear, Other (no wheezing, no crackles) Abdomen: Soft, No tenderness, Other Extremities: No clubbing, No cyanosis Skin: No rashes, No significant lesion Labs LABS Laboratory Tests Test 02/18/17 18:00 02/19/17 08:05 Urine Opiates Screen Neg (NEG) Urine Methadone Screen Neg (NEG) Urine Barbiturates Neg (NEG) Urine Phencyclidine Screen Neg (NEG) Urine Amphetamine/Methamphetamine Neg (NEG) Urine Benzodiazepines Screen Neg (NEG) Urine Cocaine Screen Pos (NEG) Urine Cannabinoids Screen Neg (NEG) Urine Ethyl Alcohol Neg (NEG) White Blood Count 5.7 x10^3/uL (4.0-11.0) Red Blood Count 4.63 x10^6/uL (4.30-5.70) Hemoglobin 14.4 g/dL (13.0-17.5) Hematocrit 42.3 % (39.0-53.0) Mean Corpuscular Volume 91 fL (79-100) Mean Corpuscular Hemoglobin 31 pg (25-35) Mean Corpuscular Hemoglobin Concent 34 g/dL (31-37) Red Cell Distribution Width 16.2 % (11.5-14.5) Platelet Count 209 x10^3/uL (140-400) Neutrophils (%) (Auto) 65 % (31-73) Lymphocytes (%) (Auto) 22 % (24-48) Monocytes (%) (Auto) 12 % (0-9) Eosinophils (%) (Auto) 1 % (0-3) Basophils (%) (Auto) 1 % (0-3) Neutrophils # (Auto) 3.7 x10^3uL (1.8-7.7) Lymphocytes # (Auto) 1.3 x10^3/uL (1.0-4.8) Monocytes # (Auto) 0.7 x10^3/uL (0.0-1.1) Eosinophils # (Auto) 0.1 x10^3/uL (0.0-0.7) Basophils # (Auto) 0.0 x10^3/uL (0.0-0.2) Sodium Level 139 mmol/L (136-145) Potassium Level 3.9 mmol/L (3.5-5.1) Chloride Level 105 mmol/L (98-107) Carbon Dioxide Level 25 mmol/L (21-32) Anion Gap 9 (6-14) Blood Urea Nitrogen 5 mg/dL (8-26) Creatinine 0.9 mg/dL (0.7-1.3) Estimated GFR (Cockcroft-Gault) 93.0 Glucose Level 107 mg/dL (70-99) Calcium Level 8.5 mg/dL (8.5-10.1) Review of Systems Review of Systems c/o diarrhea but improving c/o hunger Assessment and Plan Assessmemt and Plan GI bleed: monitor labs Epigastric abd pain: pain meds prn. Continue PPI d/c when ok w/ GI Problems: Comment Review of Relevant I have reviewed the following items argelia (where applicable) has been applied. Labs Laboratory Tests Test 02/17/17 13:35 02/17/17 14:00 02/17/17 14:40 02/17/17 19:30 White Blood Count 6.5 x10^3/uL (4.0-11.0) Red Blood Count 5.09 x10^6/uL (4.30-5.70) Hemoglobin 15.9 g/dL (13.0-17.5) Hematocrit 46.2 % (39.0-53.0) Mean Corpuscular Volume 91 fL (79-100) Mean Corpuscular Hemoglobin 31 pg (25-35) Mean Corpuscular Hemoglobin Concent 35 g/dL (31-37) Red Cell Distribution Width 16.3 % (11.5-14.5) Platelet Count 296 x10^3/uL (140-400) Neutrophils (%) (Auto) 58 % (31-73) Lymphocytes (%) (Auto) 30 % (24-48) Monocytes (%) (Auto) 10 % (0-9) Eosinophils (%) (Auto) 1 % (0-3) Basophils (%) (Auto) 1 % (0-3) Neutrophils # (Auto) 3.8 x10^3uL (1.8-7.7) Lymphocytes # (Auto) 2.0 x10^3/uL (1.0-4.8) Monocytes # (Auto) 0.7 x10^3/uL (0.0-1.1) Eosinophils # (Auto) 0.1 x10^3/uL (0.0-0.7) Basophils # (Auto) 0.1 x10^3/uL (0.0-0.2) Sodium Level 133 mmol/L (136-145) Potassium Level 4.0 mmol/L (3.5-5.1) Chloride Level 99 mmol/L (98-107) Carbon Dioxide Level 25 mmol/L (21-32) Anion Gap 9 (6-14) Blood Urea Nitrogen 3 mg/dL (8-26) Creatinine 0.9 mg/dL (0.7-1.3) Estimated GFR (Cockcroft-Gault) 93.0 Glucose Level 102 mg/dL (70-99) Calcium Level 9.3 mg/dL (8.5-10.1) Magnesium Level 1.8 mg/dL (1.8-2.4) Total Bilirubin 0.6 mg/dL (0.2-1.0) Direct Bilirubin 0.1 mg/dL (0.0-0.2) Aspartate Amino Transf (AST/SGOT) 54 U/L (15-37) Alanine Aminotransferase (ALT/SGPT) 52 U/L (16-63) Alkaline Phosphatase 95 U/L (46-116) Troponin I Quantitative < 0.017 ng/mL (0.000-0.055) < 0.017 ng/mL (0.000-0.055) Total Protein 8.7 g/dL (6.4-8.2) Albumin 3.8 g/dL (3.4-5.0) Lipase 231 U/L (73-393) Thyroid Stimulating Hormone (TSH) 0.622 uIU/mL (0.358-3.74) Stool Occult Blood Positive (NEG) Urine Collection Type Unknown Urine Color Colorless Urine Clarity Clear Urine pH 6.5 Urine Specific [place] <=1.005 Urine Protein Negative mg/dL (NEG-TRACE) Urine Glucose (UA) Negative mg/dL (NEG) Urine Ketones (Stick) Negative mg/dL (NEG) Urine Blood Negative (NEG) Urine Nitrite Negative (NEG) Urine Bilirubin Negative (NEG) Urine Urobilinogen Dipstick 0.2 mg/dL (0.2 mg/dL) Urine Leukocyte Esterase Negative (NEG) Urine RBC 0 /HPF (0-2) Urine WBC 0 /HPF (0-4) Urine Bacteria 0 /HPF (0-FEW) Test 02/18/17 08:31 02/18/17 18:00 02/19/17 08:05 White Blood Count 5.2 x10^3/uL (4.0-11.0) 5.7 x10^3/uL (4.0-11.0) Red Blood Count 4.52 x10^6/uL (4.30-5.70) 4.63 x10^6/uL (4.30-5.70) Hemoglobin 14.4 g/dL (13.0-17.5) 14.4 g/dL (13.0-17.5) Hematocrit 40.6 % (39.0-53.0) 42.3 % (39.0-53.0) Mean Corpuscular Volume 90 fL (79-100) 91 fL (79-100) Mean Corpuscular Hemoglobin 32 pg (25-35) 31 pg (25-35) Mean Corpuscular Hemoglobin Concent 36 g/dL (31-37) 34 g/dL (31-37) Red Cell Distribution Width 16.3 % (11.5-14.5) 16.2 % (11.5-14.5) Platelet Count 207 x10^3/uL (140-400) 209 x10^3/uL (140-400) Neutrophils (%) (Auto) 68 % (31-73) 65 % (31-73) Lymphocytes (%) (Auto) 21 % (24-48) 22 % (24-48) Monocytes (%) (Auto) 9 % (0-9) 12 % (0-9) Eosinophils (%) (Auto) 1 % (0-3) 1 % (0-3) Basophils (%) (Auto) 1 % (0-3) 1 % (0-3) Neutrophils # (Auto) 3.5 x10^3uL (1.8-7.7) 3.7 x10^3uL (1.8-7.7) Lymphocytes # (Auto) 1.1 x10^3/uL (1.0-4.8) 1.3 x10^3/uL (1.0-4.8) Monocytes # (Auto) 0.5 x10^3/uL (0.0-1.1) 0.7 x10^3/uL (0.0-1.1) Eosinophils # (Auto) 0.1 x10^3/uL (0.0-0.7) 0.1 x10^3/uL (0.0-0.7) Basophils # (Auto) 0.0 x10^3/uL (0.0-0.2) 0.0 x10^3/uL (0.0-0.2) Iron Level 161 ug/dL (65-175) Total Iron Binding Capacity 241 ug/dL (250-450) Iron Saturation 67 % (15-34) Urine Opiates Screen Neg (NEG) Urine Methadone Screen Neg (NEG) Urine Barbiturates Neg (NEG) Urine Phencyclidine Screen Neg (NEG) Urine Amphetamine/Methamphetamine Neg (NEG) Urine Benzodiazepines Screen Neg (NEG) Urine Cocaine Screen Pos (NEG) Urine Cannabinoids Screen Neg (NEG) Urine Ethyl Alcohol Neg (NEG) Sodium Level 139 mmol/L (136-145) Potassium Level 3.9 mmol/L (3.5-5.1) Chloride Level 105 mmol/L (98-107) Carbon Dioxide Level 25 mmol/L (21-32) Anion Gap 9 (6-14) Blood Urea Nitrogen 5 mg/dL (8-26) Creatinine 0.9 mg/dL (0.7-1.3) Estimated GFR (Cockcroft-Gault) 93.0 Glucose Level 107 mg/dL (70-99) Calcium Level 8.5 mg/dL (8.5-10.1) Laboratory Tests Test 02/18/17 18:00 02/19/17 08:05 Urine Opiates Screen Neg (NEG) Urine Methadone Screen Neg (NEG) Urine Barbiturates Neg (NEG) Urine Phencyclidine Screen Neg (NEG) Urine Amphetamine/Methamphetamine Neg (NEG) Urine Benzodiazepines Screen Neg (NEG) Urine Cocaine Screen Pos (NEG) Urine Cannabinoids Screen Neg (NEG) Urine Ethyl Alcohol Neg (NEG) White Blood Count 5.7 x10^3/uL (4.0-11.0) Red Blood Count 4.63 x10^6/uL (4.30-5.70) Hemoglobin 14.4 g/dL (13.0-17.5) Hematocrit 42.3 % (39.0-53.0) Mean Corpuscular Volume 91 fL (79-100) Mean Corpuscular Hemoglobin 31 pg (25-35) Mean Corpuscular Hemoglobin Concent 34 g/dL (31-37) Red Cell Distribution Width 16.2 % (11.5-14.5) Platelet Count 209 x10^3/uL (140-400) Neutrophils (%) (Auto) 65 % (31-73) Lymphocytes (%) (Auto) 22 % (24-48) Monocytes (%) (Auto) 12 % (0-9) Eosinophils (%) (Auto) 1 % (0-3) Basophils (%) (Auto) 1 % (0-3) Neutrophils # (Auto) 3.7 x10^3uL (1.8-7.7) Lymphocytes # (Auto) 1.3 x10^3/uL (1.0-4.8) Monocytes # (Auto) 0.7 x10^3/uL (0.0-1.1) Eosinophils # (Auto) 0.1 x10^3/uL (0.0-0.7) Basophils # (Auto) 0.0 x10^3/uL (0.0-0.2) Sodium Level 139 mmol/L (136-145) Potassium Level 3.9 mmol/L (3.5-5.1) Chloride Level 105 mmol/L (98-107) Carbon Dioxide Level 25 mmol/L (21-32) Anion Gap 9 (6-14) Blood Urea Nitrogen 5 mg/dL (8-26) Creatinine 0.9 mg/dL (0.7-1.3) Estimated GFR (Cockcroft-Gault) 93.0 Glucose Level 107 mg/dL (70-99) Calcium Level 8.5 mg/dL (8.5-10.1) Microbiology 02/18/17 Fecal Leukocyte Stain - Final, Complete Medications Current Medications Sodium Chloride 1,000 ml @ 1,000 mls/hr Q1H IV Last administered on 02/17/17 14:00; Start 02/17/17 at 13:42; Stop 02/17/17 at 14:41; Status DC Sodium Chloride (Normal Saline Flush) 10 ml QSHIFT PRN IV AFTER MEDS AND BLOOD DRAWS; Start 02/17/17 at 13:45 Famotidine (Pepcid) 20 mg 1X ONCE IVP Last administered on 02/17/17 13:59; Start 02/17/17 at 13:45; Stop 02/17/17 at 13:53; Status DC Iohexol (Omnipaque 300 Mg/ml) 75 ml 1X ONCE IV Last administered on 02/17/17 14:59; Start 02/17/17 at 14:30; Stop 02/17/17 at 14:31; Status DC Info (Do NOT chart on this entry -- for MONITORING) 1 each PRN DAILY PRN MC SEE COMMENTS; Start 02/17/17 at 14:30; Stop 02/19/17 at 14:29 Iohexol (Omnipaque 300 Mg/ml) 75 ml STK-MED ONCE .ROUTE ; Start 02/17/17 at 14: 22; Stop 02/17/17 at 14:23; Status DC Ondansetron HCl (Zofran) 4 mg PRN Q8HRS PRN IV NAUSEA/VOMITING Last administered on 02/17/17 17:42; Start 02/17/17 at 15:45; Stop 02/18/17 at 15:44 ; Status DC Fentanyl Citrate (Fentanyl 2ml Vial) 50 mcg PRN Q1HR PRN IV PAIN Last administered on 02/18/17 08:41; Start 02/17/17 at 15:45; Stop 02/18/17 at 15:44 ; Status DC Sodium Chloride 1,000 ml @ 125 mls/hr Q8H IV Last administered on 02/18/17 08 :41; Start 02/17/17 at 15:41; Stop 02/18/17 at 15:40; Status DC Pantoprazole Sodium (Protonix) 40 mg BIDAC PO Last administered on 02/19/17 07 :50; Start 02/17/17 at 18:00 Sertraline HCl (Zoloft) 25 mg QHS PO Last administered on 02/18/17 20:42; Start 02/17/17 at 21:00 Acetaminophen/ Hydrocodone Bitart (Lortab 5/325) 1 tab PRN Q6HRS PRN PO PAIN Last administered on 02/19/17 08:43; Start 02/19/17 at 08:30 Active Scripts Active Reported Sertraline Hcl 25 Mg Tablet 25 Mg PO DAILY Vitals/I & O Vital Sign - Last 24 Hours 02/18/17 02/18/17 02/18/17 02/18/17 15:00 19:00 20:00 23:00 Temp 98.5 98.4 98.4 98.5 98.4 98.4 Pulse 74 79 76 Resp 20 20 20 B/P (MAP) 122/88 (99) 121/88 (99) 108/80 (89) Pulse Ox 96 99 96 O2 Delivery Room Air Room Air Room Air Room Air 02/19/17 02/19/17 02/19/17 03:09 07:00 08:43 Temp 98.3 97.7 98.3 97.7 Pulse 78 76 Resp 20 20 B/P (MAP) 107/79 (88) 114/87 (96) Pulse Ox 99 96 O2 Delivery Room Air Room Air Room Air Intake and Output 02/19/17 02/19/17 02/20/17 15:00 23:00 07:00 Intake Total 250 ml Balance 250 ml TIFF ROCHA III DO Feb 19, 2017 11:49
--- NOTE | 2017-02-19 12:07 | PDOC ---
Subjective: Subjective: Feels better, would like to leave. Tolerating PO w/o nausea. Diarrhea better, no further bleeding. Objective: Vital Signs: Vital Signs Date Time Temp Pulse Resp B/P (MAP) Pulse Ox O2 Delivery O2 Flow Rate FiO2 02/19/17 08:43 Room Air 02/19/17 07:00 97.7 76 20 114/87 (96) 96 97.7 Labs: Laboratory Tests Test 02/18/17 18:00 02/19/17 08:05 Urine Opiates Screen Neg Urine Methadone Screen Neg Urine Barbiturates Neg Urine Phencyclidine Screen Neg Urine Amphetamine/Methamphetamine Neg Urine Benzodiazepines Screen Neg Urine Cocaine Screen Pos Urine Cannabinoids Screen Neg Urine Ethyl Alcohol Neg White Blood Count 5.7 x10^3/uL Red Blood Count 4.63 x10^6/uL Hemoglobin 14.4 g/dL Hematocrit 42.3 % Mean Corpuscular Volume 91 fL Mean Corpuscular Hemoglobin 31 pg Mean Corpuscular Hemoglobin Concent 34 g/dL Red Cell Distribution Width 16.2 % Platelet Count 209 x10^3/uL Neutrophils (%) (Auto) 65 % Lymphocytes (%) (Auto) 22 % Monocytes (%) (Auto) 12 % Eosinophils (%) (Auto) 1 % Basophils (%) (Auto) 1 % Neutrophils # (Auto) 3.7 x10^3uL Lymphocytes # (Auto) 1.3 x10^3/uL Monocytes # (Auto) 0.7 x10^3/uL Eosinophils # (Auto) 0.1 x10^3/uL Basophils # (Auto) 0.0 x10^3/uL Sodium Level 139 mmol/L Potassium Level 3.9 mmol/L Chloride Level 105 mmol/L Carbon Dioxide Level 25 mmol/L Anion Gap 9 Blood Urea Nitrogen 5 mg/dL Creatinine 0.9 mg/dL Estimated GFR (Cockcroft-Gault) 93.0 Glucose Level 107 mg/dL Calcium Level 8.5 mg/dL PE: GEN: NAD LUNGS: CTAB HEART: RRR ABD: NABS, S/ND/NT NEURO/PSYCH: A & O 3 A/P: Diarrhea - improved Rectal bleeding, nausea, abd pain - all resolved, Hgb still WNL Substance abuse -- Note DC orders. Follow-up re: pending labs (cortisol, hemochromatosis). SCOTT CASILLAS Feb 19, 2017 12:07
[2017-02-19 15:00] VITALS: BP 120/86
== END 2017-02-19 17:15 | disposition home or self-care (01) | DRG 379 ==
LOC: ER 13:22 → 5 NORTH 15:32
PROVIDERS: ADMIT Internal Medicine Hematology & Oncology; ATTEND Internal Medicine Hematology & Oncology
DX: K92.2 Gastrointestinal hemorrhage, unspecified (principal); N28.89 Other specified disorders of kidney and ureter; F17.210 Nicotine dependence, cigarettes, uncomplicated; F41.9 Anxiety disorder, unspecified; Z83.3 Family history of diabetes mellitus; Z90.49 Acquired absence of other specified parts of digestive tract
CPT/HCPCS: 36415; 74177; 80048; 80076; 80307; 81001; 82274; 82533; 83540; 83550; 83690; 83735; 84443; 84484; 85025; 86850; 86900; 86901; 87205; 87324; 93005; 96361; 96374; J2405; J3010; J7030; Q9967; S0028; 99285-25; G0479